=== PATIENT | male | born 1970 | race African-American/Black ===

== ENCOUNTER 2022-10-15 10:42 | Emergency (ER) | payer OTHER ==
[~2022-10-15] VITALS: Ht 170.2 cm; Wt 86.2 kg
[2022-10-15 11:03] VITALS: O2SAT 99
[2022-10-15] MEDS ORDERED: DOCUSATE SODIU100 MG PO (11:11)
== END 2022-10-15 11:16 | disposition home or self-care (01) ==
LOC: FSED 10:46
DX: K62.5 Hemorrhage of anus and rectum (principal); K59.00 Constipation, unspecified; I10 Essential (primary) hypertension; E78.5 Hyperlipidemia, unspecified; Z87.19 Personal history of other diseases of the digestive system
CPT/HCPCS: 99282